=== PATIENT | female | born 1950 | race Caucasian/White ===

== ENCOUNTER 2021-04-03 12:11 | Outpatient (CLI) | payer OTHER | END 2021-04-03 12:26 | disposition home or self-care (01) | LOC: SONOGRAMA 12:11 | PROVIDERS: ATTEND Surgery | DX: C50.212 Malignant neoplasm of upper-inner quadrant of left female breast (principal); D24.2 Benign neoplasm of left breast; N60.11 Diffuse cystic mastopathy of right breast; N60.12 Diffuse cystic mastopathy of left breast ==

== ENCOUNTER 2021-06-08 15:05 | Emergency (ER) | payer OTHER ==
[~2021-06-08] VITALS: Ht 165.1 cm; Wt 112.5 kg
[2021-06-08] MEDS ORDERED: OMEPRAZOLE20 MG PO (15:28)
[2021-06-08] MEDS ORDERED: METOPROLOL SUC100 MG PO (15:29)
[2021-06-08] MEDS ORDERED: SIMVASTATIN20 MG PO (15:29)
[2021-06-08] MEDS ORDERED: VITAMIN D3250 MCG PO (15:29)
[2021-06-08] MEDS ORDERED: SYNTHROID112 MCG PO (15:29)
[2021-06-08] MEDS ORDERED: ISOSORBIDE MONO60 M2 PO (15:29)
== END 2021-06-08 21:11 | disposition home or self-care (01) ==
LOC: ER 15:05
DX: S00.83XA Contusion of other part of head, initial encounter (principal); S60.221A Contusion of right hand, initial encounter; S80.02XA Contusion of left knee, initial encounter; W01.198A Fall on same level from slipping, tripping and stumbling with subsequent striking against other object, initial encounter; Y93.01 Activity, walking, marching and hiking; Y92.238 Other place in hospital as the place of occurrence of the external cause; Y99.8 Other external cause status

== ENCOUNTER 2021-06-26 05:55 | Day surgery (SDC) | payer OTHER ==
[~2021-06-26 05:55] MED LIST: ISOSORBIDE MONO60 M2 PO; METOPROLOL SUC100 MG PO; OMEPRAZOLE20 MG PO; SIMVASTATIN20 MG PO; SYNTHROID112 MCG PO; VITAMIN D3250 MCG PO
== END 2021-06-26 16:30 | disposition home or self-care (01) ==
LOC: CIR.AMB 05:55
PROVIDERS: ATTEND Surgery
DX: C50.412 Malignant neoplasm of upper-outer quadrant of left female breast (principal); Z20.822 Contact with and (suspected) exposure to COVID-19

== ENCOUNTER → 2021-08-14 12:42 | Outpatient (CLI) | payer OTHER | END | disposition home or self-care (01) | LOC: LAB 12:42 | PROVIDERS: ATTEND Surgery | DX: N61.0 Mastitis without abscess (principal); N61.1 Abscess of the breast and nipple ==